=== PATIENT | male | born 1960 | race Caucasian/White ===

== ENCOUNTER 2017-07-24 19:00 | Emergency (ER) | payer BC, OTHER ==
[~2017-07-24] VITALS: Ht 180.3 cm; Wt 90.7 kg
[2017-07-24] MEDS ORDERED: LIDOCAINE 1% INJ 50 ML (XYLOCAINE) VIAL ONE (19:25)
[2017-07-24] MEDS ORDERED: LIDOCAINE 1% INJ 20 ML (XYLOCAINE) VIAL INJ ONE (19:30)
[2017-07-24] MEDS ORDERED: TETANUS,DIPTH,PERTUSS P/F (BOOSTRIX) 0.5 ML VIAL IM ONE (19:30)
[2017-07-24] MEDS ORDERED: RT-ALBUTEROL/IPRATROPIUM 3 ML (DUONEB) VIAL INH ONE (19:45)
[2017-07-24] MEDS ORDERED: SULF1TAB35 PO (20:05)
--- NOTE | 2017-07-24 20:06 | ED General ---
General Chief Complaint: Laceration Stated Complaint: FINGER LAC Nursing Triage Note: PT TO ED WITH COMPLAINT OF FINGER LACERATION. STATES THAT IT HAPPENED FOUR HOURS AGO WHILE CUTTING A DEER. Nursing Sepsis Screen: No Definite Risk Source of Information: Patient Exam Limitations: No Limitations History of Present Illness Time Seen by Provider: 19:20 Initial Comments This 56-year-old gentleman presents to the ER with a laceration on the left index finger he sustained when the knife slipped while he was cleaning a deer. The incident happened about 4 hours ago. Bleeding is fairly well controlled at this time. He is in need of a tetanus immunization. He is also coughing and having a little bit of difficulty breathing with his COPD. He does not have his inhaler with him. Allergies and Home Medications Allergies Coded Allergies: No Known Drug Allergies (Unverified , 07/24/17) Home Medications Sulfamethoxazole/Trimethoprim 1 Each Tablet, 1 EACH PO BID, #14 Prescribed by: DARRON GRIER on 07/24/172004 Constitutional: no symptoms reported EENTM: no symptoms reported Respiratory: see HPI Cardiovascular: no symptoms reported Gastrointestinal: no symptoms reported Genitourinary: no symptoms reported Musculoskeletal: no symptoms reported Skin: see HPI Psychiatric/Neurological: No Symptoms Reported Hematologic/Lymphatic: No Symptoms Reported Immunological/Allergic: no symptoms reported Past Dclsvds-Hfeqnw-Tmyiqr Hx Patient Social History Alcohol Use: Occasionally Uses Recreational Drug Use: No Smoking Status: Former Smoker Type Used: Cigarettes Recent Foreign Travel: No Contact w/Someone Who Travel: No Recent Infectious Disease Expo: No Recent Hopitalizations: No Immunizations Up To Date Tetanus Booster (TDap): More than 5yrs Date of Influenza Vaccine: May 19, 2017 Seasonal Allergies Seasonal Allergies: Yes Surgeries History of Surgeries: Yes (PACEMAKER, KIDNEY STONES) Surgeries: Appendectomy, Cardiac, Orthopedic, Pacemaker, Renal Respiratory History of Respiratory Disorde: Yes Respiratory Disorders: Sleep Apnea, COPD Currently Using CPAP: Yes Cardiovascular History of Cardiac Disorders: Yes (PACEMAKER) Neurological History of Neurological Disord: Yes Neurological Disorders: Cerebral Palsy Genitourinary History of Genitourinary Disor: Yes Genitourinary Disorders: Kidney Stones Gastrointestinal History of Gastrointestinal Di: No Musculoskeletal History of Musculoskeletal Dis: Yes Endocrine History of Endocrine Disorders: No HEENT History of HEENT Disorders: No Cancer History of Cancer: No Psychosocial History of Psychiatric Problem: No Integumentary History of Skin or Integumenta: No Physical Exam Vital Signs Vital Sign - Last 12Hours 07/24/17 19:23 Temp 98.0 Pulse 84 Resp 20 B/P (MAP) 125/76 (92) Pulse Ox 94 O2 Delivery Room Air Capillary Refill : Less Than 3 Seconds General Appearance: No Apparent Distress, WD/WN HEENT: PERRL/EOMI, Normal ENT Inspection Respiratory: No Accessory Muscle Use, No Respiratory Distress, Wheezing, Other (cough) Cardiovascular: Regular Rate, Rhythm, No Edema, No Murmur Extremity: Other (5 cm laceration on the lateral aspect of the left second finger. Laceration is fairly deep extending well into the subcutaneous tissue. Capillary refill, sensation, and range of motion intact distally. Patient can fully extend and flex his finger. There appears to be no tendon injury.) Neurologic/Psychiatric: Alert, Oriented x3, No Motor/Sensory Deficits, Normal Mood/Affect, school guard II-XII Norm as Tested Skin: Normal Color, Warm/Dry, Other (see above) Laceration Repair : Wound Location: Upper Extremities Other Wound Location Left second finger Wound Length (cm): 5 Wound's Depth, Shape: linear, sub Q Wound Explored: clean Irrigated w/ Saline (ccs): 1000 Betadine Prep?: Yes Anesthesia: 1% Lidocaine Volume Anesthetic (ccs): 10 Suture: Prolene Suture Size: 4-0 Number of Sutures: 9 Sterile Dressing Applied?: Yes Progress Digital block was performed using one percent lidocaine. Wound was first scrubbed with sterile saline and chlorhexidine. It was then rinsed under pressure with sterile saline. Bleeding was minimal. Wound was repaired with 4- 0 Prolene suture. 9 sutures were applied. Patient tolerated the procedure well. Progress/Results/Core Measures Suspected Sepsis Recent Fever Within 48 Hours: No Infection Criteria Present: None New/Unexplained Altered Menta: No Sepsis Screen: No Definite Risk Sepsis Diagnosis: SIRS Temperature:98.0 Pulse: 84 Respiratory Rate: 20 Blood Pressure 125 /76 Mean: 92 Results/Orders My Orders Orders - DARRON TAYLOR MD Dipht,Prashant(Acell),Tet Adult (Boostrix (07/24/17 19:30) Lidocaine 1% Injection (Xylocaine 1% Inj (07/24/17 19:30) Lidocaine 1% (Xylocaine 1%) (07/24/17 19:25) Albuterol/Ipra Inhalation Soln (Duoneb I (07/24/17 19:45) Svn Sm Volume Nebulizer Rt-Rfs (07/24/17 19:41) Sulfamethoxazole/Trimet Ds Tab (Bactrim (07/24/17 20:15) Medications Given in ED Current Medications Medications Dose Ordered Sig/Ze Route Start Time Stop Time Status Last Admin Dose Admin Albuterol/ Ipratropium 3 ml ONCE ONCE INH 07/24/17 19:45 07/24/17 19:46 DC 07/24/17 20:03 3 ML Diphtheria/ Tetanus/Acell Pertussis 0.5 ml ONCE ONCE IM 07/24/17 19:30 07/24/17 19:31 DC 07/24/17 20:03 0.5 ML Lidocaine HCl 50 ml STK-MED ONCE .ROUTE 07/24/17 19:25 07/24/17 19:26 DC 07/24/17 19:45 50 ML Trimethoprim/ Sulfamethoxazole 1 ea ONCE ONCE PO 07/24/17 20:15 07/24/17 20:16 DC 07/24/17 20:16 1 EA Vital Signs/I&O Vital Sign - Last 12Hours 07/24/17 07/24/17 19:23 20:03 Temp 98.0 Pulse 84 Resp 20 B/P (MAP) 125/76 (92) Pulse Ox 94 O2 Delivery Room Air Room Air Capillary Refill : Less Than 3 Seconds Blood Pressure Mean: 92 Progress Note : Progress Note Wound was repaired with suture after digital block. Patient received a Boostrix immunization. Because of the prolonged duration the wound before presentation, and the dirty environment in which the wound was obtained, Bactrim was given. A prescription was also provided. DuoNeb treatment was given for patient's COPD related wheezing and coughing. Departure Impression Impression: Primary Impression: Laceration of finger of left hand Qualified Codes: S61.211A - Laceration without foreign body of left index finger without damage to nail, initial encounter Additional Impression: COPD exacerbation Disposition: HOME, SELF-CARE Condition: Improved Departure-Patient Inst. Decision time for Depature: 19:25 Referrals: NO,LOCAL PHYSICIAN (PCP/Family) Primary Care Physician Patient Instructions: Laceration Repair With Stitches (DC) Add. Discharge Instructions: Keep your wound clean and dry. Cover whenever active to prevent disrupting the stitches or soiling the wound. You may apply Vaseline or antibiotic ointment to prevent wound from sticking to the dressing. You may wash your hands and shower starting tomorrow morning. Do not submerge until sutures are removed. Monitor the wound for signs of infection such as increasing redness, increasing swelling, puslike drainage, increasing pain, or fever. Return to care promptly few notice these symptoms. Complete your antibiotics as prescribed. Follow-up in 9 or 10 days to have the sutures removed. You may take Tylenol and/or ibuprofen for pain. All discharge instructions reviewed with patient and/or family. Voiced understanding. Scripts Sulfamethoxazole/Trimethoprim (Bactrim Ds Tablet) 1 Each Tablet 1 EACH PO BID, #14 TAB Prov: DARRON TAYLOR MD 07/24/17 DARRON TAYLOR MD Jul 24, 2017 20:06
[2017-07-24] MEDS ORDERED: TRIM/SULFAMETH 160/800 (SEPTRA DS) TAB PO ONE (20:15)
[2017-07-24 20:19] VITALS: BP 130/87
== END 2017-07-24 20:19 | disposition home or self-care (01) ==
LOC: ER 19:03
DX: S61.211A Laceration without foreign body of left index finger without damage to nail, initial encounter (principal); J44.1 Chronic obstructive pulmonary disease with (acute) exacerbation; G47.30 Sleep apnea, unspecified; G80.9 Cerebral palsy, unspecified; Z23 Encounter for immunization; Z87.442 Personal history of urinary calculi; Z90.49 Acquired absence of other specified parts of digestive tract; Z95.0 Presence of cardiac pacemaker; Z87.891 Personal history of nicotine dependence; W26.0XXA Contact with knife, initial encounter; Y93.E5 Activity, floor mopping and cleaning
CPT/HCPCS: 12002; 64450; 90715; 94640

== ENCOUNTER 2017-08-03 16:39 | Emergency (ER) | payer BC ==
[~2017-08-03] VITALS: Ht 180.3 cm; Wt 90.7 kg
[~2017-08-03 16:39] MED LIST: SULF1TAB35 PO
[2017-08-03 16:54] VITALS: BP 106/66
== END 2017-08-03 16:54 | disposition home or self-care (01) ==
LOC: EDUNIT# 16:39 → ER 16:40
DX: S61.211D Laceration without foreign body of left index finger without damage to nail, subsequent encounter (principal); X58.XXXD Exposure to other specified factors, subsequent encounter